=== PATIENT | female | born 1970 | race Caucasian/White ===

== ENCOUNTER 2024-08-18 01:59 | Emergency (ER) | payer OTHER ==
[~2024-08-18] VITALS: Ht 160 cm; Wt 54.4 kg
[2024-08-18 02:09] VITALS: O2SAT 96
== END 2024-08-18 04:54 | disposition home or self-care (01) ==
LOC: ER 02:12
DX: H93.11 Tinnitus, right ear (principal); F17.210 Nicotine dependence, cigarettes, uncomplicated; H92.09 Otalgia, unspecified ear; R03.0 Elevated blood-pressure reading, without diagnosis of hypertension
CPT/HCPCS: A4606; A4663